=== PATIENT | female | born 1985 | race American Indian/Alaskan Native ===

== ENCOUNTER 2018-11-05 11:24 | Emergency (ER) | payer BC, OTHER ==
[2018-11-05 11:43] VITALS: BP 103/74
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
--- NOTE | 2018-11-05 13:36 | XRay Report ---
LUMBOSACRAL SPINE, 3 VIEWS: History: Back pain Findings: The vertebral bodies, disk spaces and posterior elements are intact. No compression deformity or malalignment. The SI joints are symmetric and unremarkable. Impression: 1. No evidence for acute injury to the lumbar spine.
[2018-11-05] MEDS ORDERED: IBUPROFEN PO ONE (13:42)
--- NOTE | 2018-11-05 14:13 | Cat Scan Report ---
FINAL REPORT EXAM: CT C-SPINE WO CONTRAST HISTORY: NECK PAIN TECHNIQUE: CT examination of the cervical spine without IV contrast PRIORS: None. FINDINGS: There is no compression fracture or spondylolisthesis. No significant degenerative change is present. The visualized prevertebral soft tissues are negative. No evidence of disc narrowing. No CT evidence of neural foraminal stenosis. IMPRESSION: No acute skeletal pathology in the cervical spine
== END 2018-11-05 14:42 | disposition home or self-care (01) ==
LOC: ED 11:24
DX: S13.4XXA Sprain of ligaments of cervical spine, initial encounter (principal); S39.012A Strain of muscle, fascia and tendon of lower back, initial encounter; F12.10 Cannabis abuse, uncomplicated; V89.2XXA Person injured in unspecified motor-vehicle accident, traffic, initial encounter; Y93.89 Activity, other specified; Y99.8 Other external cause status; Y92.410 Unspecified street and highway as the place of occurrence of the external cause
CPT/HCPCS: 72100; 72125

== ENCOUNTER 2019-07-01 13:32 | Emergency (ER) | payer SELFPAY ==
[2019-07-01 14:49] LABS: Basophils # (Auto) 0.1 K/mm3 (0.0-0.1); Basophils % (Auto) 0.6 % (0.0-1.8); Hematocrit 42.9 % (30.3-42.9); Hemoglobin 14.2 gm/dl (10.1-14.3); Lymphocytes # (Auto) 1.4 K/mm3 (1.2-5.4); Lymphocytes % (Auto) 13.2 % (13.4-35.0); Mean Corpuscular HGB Conc 33 % (30-34); Mean Corpuscular Volume 82 fl (79-97); Monocytes # (Auto) 0.5 K/mm3 (0.0-0.8); Monocytes % (Auto) 4.8 % (0.0-7.3); Platelet Count 429 K/mm3 (140-440); Red Blood Count 5.24 M/mm3 (3.65-5.03); Red Cell Distribution Width 14.2 % (13.2-15.2)
[2019-07-01 15:24] LABS: Alanine Aminotransferase 11 units/L (7-56); Albumin 4.5 g/dL (3.9-5); BUN/Creatinine Ratio 13; Blood Urea Nitrogen 10 mg/dL (7-17); Calcium 9.8 mg/dL (8.4-10.2); Hemolysis Index 0
[2019-07-01] MEDS ORDERED: LORazepam 2 MG/ML VIAL IV ONE ×2 (15:58→21:23)
[2019-07-01] MEDS ORDERED: SODIUM CHLORIDE 0.9% 1000 ML 1,000 ML IV ONE ×2 (15:58→23:14)
--- NOTE | 2019-07-01 16:01 | Emergency Department Report ---
ED General Adult HPI - General Chief complaint: Nausea/Vomiting/Diarrhea Stated complaint: N/V ANXIETY Time Seen by Provider: 07/01/19 15:56 Source: patient Mode of arrival: Wheelchair Limitations: No Limitations - History of Present Illness Initial comments: Patient is a 34-year-old female that presents emergency room with complaints of nausea vomiting 3 days. Patient states 3 days ago she had a gastric balloon placement or weight loss. Patient states she had the balloon placed by endoscopy in [facility], by . Patient also complains of being anxious, short of breath and weak. Patient states she's not to hold anything down since the procedure. Patient states solids and liquids are causing her to vomit. Patient denies abdominal pain. Patient states she also had a bowel movement since the procedure. -: Sudden Consistency: constant Improves with: rest Worsens with: eating Associated Symptoms: malaise, nausea/vomiting, shortness of breath, weakness. denies: confusion, chest pain, cough, diaphoresis, fever/chills, headaches, loss of appetite, rash, seizure, syncope Treatments Prior to Arrival: none - Related Data Home Medications Medication Instructions Recorded Confirmed Last Taken Aspirin [Aspirin BABY CHEW TAB] 81 mg PO DAILY 07/01/19 07/01/19 Unknown Hyoscyamine Sulfate [Hyoscyamine 0.125 mg SL Q4H PRN 07/01/19 07/01/19 Unknown Rapdis 0.125 mg] Ondansetron [Zofran Odt] 4 mg PO Q8HR 07/01/19 07/01/19 Unknown Pantoprazole [Protonix] 40 mg PO DAILY 07/01/19 07/01/19 Unknown Allergies Allergy/AdvReac Type Severity Reaction Status Date / Time No Known Allergies Allergy Verified 07/01/19 20:59 ED Review of Systems ROS: Stated complaint: N/V ANXIETY Other details as noted in HPI Comment: All other systems reviewed and negative Constitutional: malaise, weakness. denies: chills, fever Eyes: denies: eye pain, eye discharge, vision change ENT: denies: ear pain, throat pain Respiratory: shortness of breath. denies: cough, wheezing Cardiovascular: denies: chest pain, palpitations Endocrine: no symptoms reported Gastrointestinal: nausea, vomiting. denies: abdominal pain, diarrhea Genitourinary: denies: urgency, dysuria, discharge Musculoskeletal: denies: back pain, joint swelling, arthralgia Skin: denies: rash, lesions Neurological: weakness. denies: headache, paresthesias Psychiatric: denies: anxiety, depression Hematological/Lymphatic: denies: easy bleeding, easy bruising ED Past Medical Hx - Past Medical History Previous Medical History?: No - Surgical History Past Surgical History?: Yes Additional Surgical History: GASTRIC BALLOON 06/29/2019. breast reduction. Tummy tuck - Social History Smoking Status: Never Smoker Substance Use Type: None - Medications Home Medications: Home Medications Medication Instructions Recorded Confirmed Last Taken Type Aspirin [Aspirin BABY CHEW TAB] 81 mg PO DAILY 07/01/19 07/01/19 Unknown History Hyoscyamine Sulfate [Hyoscyamine 0.125 mg SL Q4H PRN 07/01/19 07/01/19 Unknown History Rapdis 0.125 mg] Ondansetron [Zofran Odt] 4 mg PO Q8HR 07/01/19 07/01/19 Unknown History Pantoprazole [Protonix] 40 mg PO DAILY 07/01/19 07/01/19 Unknown History ED Physical Exam - General Limitations: No Limitations General appearance: alert, in no apparent distress - Head Head exam: Present: atraumatic, normocephalic - Eye Eye exam: Present: normal appearance - ENT ENT exam: Present: mucous membranes moist - Neck Neck exam: Present: normal inspection - Respiratory Respiratory exam: Present: normal lung sounds bilaterally. Absent: respiratory distress - Cardiovascular Cardiovascular Exam: Present: regular rate, normal rhythm. Absent: systolic murmur, diastolic murmur, rubs, gallop - GI/Abdominal GI/Abdominal exam: Present: soft, tenderness (epigastric tenderness), normal bowel sounds, other (surgical scar noted on the lower abdomen). Absent: distended, guarding, rebound - Extremities Exam Extremities exam: Present: normal inspection - Back Exam Back exam: Present: normal inspection - Neurological Exam Neurological exam: Present: alert, oriented X3 - Psychiatric Psychiatric exam: Present: normal affect, normal mood - Skin Skin exam: Present: warm, dry, intact, normal color. Absent: rash ED Course Vital Signs 07/01/19 07/01/19 07/01/19 14:02 15:25 16:20 Temperature 98.9 F Pulse Rate 71 67 55 L Respiratory 20 24 14 Rate Blood Pressure 131/71 Blood Pressure 137/92 138/86 [Left] O2 Sat by Pulse 100 100 99 Oximetry 07/01/19 07/01/19 19:30 21:26 Temperature Pulse Rate 67 67 Respiratory 18 18 Rate Blood Pressure Blood Pressure 120/86 122/65 [Left] O2 Sat by Pulse 100 97 Oximetry - Reevaluation(s) Reevaluation #1: Patient states her nauseous has improved. Patient states she is less anxious. Patient states her shortness of breath has resolved. 07/01/19 17:44 Reevaluation #2: Patient did not tolerate by mouth challenge. Patient states she is feeling better but still unable to tolerate anything by mouth 07/01/19 19:25 Reevaluation #3: I discussed results and plan of care with patient. Patient agrees with plan of care and transfer. Patient will be transferred to [facility]. 07/01/19 23:07 - Consultations Consultation #1: I discussed case with SEKOU Chiu. Document recommends transferring to [facility] the patient's surgeon has admitting 07/01/19 19:29 Consultation #2: The patient's general surgeon paged. 07/01/19 19:35 Discussed the case with the patient's general surgeon, Dr. Emmanuelle Alvarado. Dr. Emmanuelle Alvarado has agreed and accepted the patient to be transferred to [facility] in [place]. 07/01/19 23:07 Discussed patient's case with [facility] transfer center. 07/01/19 23:28 per [facility] policy, the patient needs to go ER to ER. Dr. Landaverde at [facility] ER has accepted the pt for transfer. 07/02/19 00:29 ED Medical Decision Making - Lab Data Result diagrams: 07/01/19 14:16 07/01/19 14:16 - Radiology Data Radiology results: report reviewed CT ABDOMEN AND PELVIS WITHOUT CONTRAST INDICATION: n/v. recent gastric ballon placement CONTRAST: Without IV COMPARISON: None available. All CT scans at this location are performed using CT dose reduction for ALARA by means of automated exposure control. NOTE: Resolution is decreased and artifact is introduced by the patient's size. FINDINGS: Lung bases are clear. No significant focal bony lesions are seen. Surgical changes seen in the right femur. Gallbladder and bile ducts appear within normal limits. Mild fatty infiltration of the liver is seen without significant enlargement. Spleen appears within normal limits. No hepatic or splenic masses are obvious. Pancreas appears within normal limits. No abdominal masses are seen. No focal inflammatory changes are noted. No lymphadenopathy is seen. No free fluid is noted. Mild bilateral nephrolithiasis and nephrocalcinosis are noted without obstructive change seen. No ureteral calculi or dilatation are noted. Small calcifications in the pelvis appear to be extra ureteral. Urinary bladder is mostly decompressed but shows no abnormalities. A mostly fat density left ovarian term ovoid is seen measuring 2 cm. As stated in the history there is a large balloon device in the stomach inflated to a diameter of 10.5 cm with internal water density. This occupies much of the fundus of the stomach. Fluid is seen in the lumen around this device. No evidence of perforation is seen. No inflammatory changes are noted. Esophagus is not dilated. No obvious complication is seen. IMPRESSION: 1. Balloon device is noted in the gastric fundal region without obvious complication 2. Mild bilateral nephrolithiasis and nephrocalcinosis without acute change seen 3. Small left ovarian dermoid - Medical Decision Making Patient is a 34-year-old female that presents emergency room with intractable nausea and vomiting and epigastric tenderness. Patient recently had a gastric balloon placed in her stomach for weight loss. Patient had a CT done due to her symptoms and shows no acute findings and shows the gastric balloon and good placement and no complications. Discussed case with GI and GI recommends transfer to a facility that the surgeon that did the procedure has privileges. I discussed the case with the patient's general surgeon and the patient's chart is perused his [facility]. Patient will be transferred ER to ER from [facility] to [facility] via ambulance. Patient's labs unremarkable. Patient had multiple by mouth challenges in the ER and were all negative. - Differential Diagnosis intractable nausea and vomiting. Epigastric tenderness. Surgical complica Critical Care Time: Yes Critical care attestation.: If time is entered above; I have spent that time in minutes in the direct care of this critically ill patient, excluding procedure time. Critical Care Time: 45 minutes ED Disposition Clinical Impression: Intractable nausea and vomiting, Anxiety, SOB (shortness of breath), History of weight loss surgery, Dehydration Abdominal pain Qualifiers: Abdominal location: epigastric Qualified Code(s): R10.13 - Epigastric pain UTI (urinary tract infection) Qualifiers: Urinary tract infection type: acute cystitis Hematuria presence: with hematuria Qualified Code(s): N30.01 - Acute cystitis with hematuria Cyst, ovary, dermoid Qualifiers: Laterality: left Qualified Code(s): D27.1 - Benign neoplasm of left ovary Disposition: DC/TX-70 ANOTHER TYPE HLTHCARE Is pt being admited?: No Does the pt Need Aspirin: No Condition: Critical Time of Disposition: 00:37
[2019-07-01 16:48] LABS: Bacteria,Urine 2+ /HPF (Negative); Bilirubin,Urine NEG (Negative); Blood,Urine LG (Negative); Color,Urine Red (Yellow); Mucus,Urine 3+ /HPF; Urobilinogen,Urine < 2.0 mg/dL (<2.0)
[2019-07-01 16:49] LABS: RBC,Urine > 182.0 /HPF (0.0-6.0)
[2019-07-01] MEDS ORDERED: CEFEPIME/NS 1 GM/100 ML 1 GM/100 ML BAG IV ONE (17:07)
--- NOTE | 2019-07-01 18:44 | Cat Scan Report ---
CT ABDOMEN AND PELVIS WITHOUT CONTRAST INDICATION: n/v. recent gastric ballon placement CONTRAST: Without IV COMPARISON: None available. All CT scans at this location are performed using CT dose reduction for ALARA by means of automated e xposure control. NOTE: Resolution is decreased and artifact is introduced by the patient's size. FINDINGS: Lung bases are clear. No significant focal bony lesions are seen. Surgical changes seen in the right femur. Gallbladder and bile ducts appear within normal limits. Mild fatty infiltration of t he liver is seen without significant enlargement. Spleen appears within normal limits. No hepatic or splenic masses are obvious. Pancreas appears within normal limits. No abdominal masses are seen. No f ocal inflammatory changes are noted. No lymphadenopathy is seen. No free fluid is noted. Mild bilateral nephrolithiasis and nephrocalcinosis are noted without obstructive change seen. No ure teral calculi or dilatation are noted. Small calcifications in the pelvis appear to be extra ureteral . Urinary bladder is mostly decompressed but shows no abnormalities. A mostly fat density left ovaria n term ovoid is seen measuring 2 cm. As stated in the history there is a large balloon device in the stomach inflated to a diameter of 10. 5 cm with internal water density. This occupies much of the fundus of the stomach. Fluid is seen in t he lumen around this device. No evidence of perforation is seen. No inflammatory changes are noted. E sophagus is not dilated. No obvious complication is seen. IMPRESSION: 1. Balloon device is noted in the gastric fundal region without obvious complication 2. Mild bilateral nephrolithiasis and nephrocalcinosis without acute change seen 3. Small left ovarian dermoid Signer Name: Hugo Staley MD Signed: 07/01/2019 6:40 PM Workstation Name: [id number]
[2019-07-01] MEDS ORDERED: ONDANSETRON 4 MG/2 ML INJ IV ONE (19:00)
[2019-07-01] MEDS ORDERED: LORazepam 2 MG/ML VIAL ONE (20:58)
[2019-07-02 04:32] VITALS: BP 125/74
== END 2019-07-02 02:00 | disposition other institution (70) ==
LOC: ED 13:32
DX: N39.0 Urinary tract infection, site not specified (principal); D27.1 Benign neoplasm of left ovary; E86.0 Dehydration; Z98.84 Bariatric surgery status
CPT/HCPCS: 36415; 74176; 80053; 81001; 83690; 84703; 85025; 87086; 96361; 96365; 96375; 96376; 99285; J0692; J2060; J2405; J7030